=== PATIENT | female | born 1960 | race Caucasian/White ===

== ENCOUNTER → 2022-01-09 | Outpatient (REF) | payer BC | LOC: M LAB REF 18:06 | PROVIDERS: ATTEND Family Medicine | DX: Z12.4 Encounter for screening for malignant neoplasm of cervix (principal) ==

== ENCOUNTER 2022-04-26 09:30 | Day surgery (SDC) | payer BC ==
[~2022-04-26] VITALS: Ht 157.5 cm; Wt 71.1 kg
[~2022-04-26 09:30] MED LIST: FLUO1TAB3; LISI10TA22; NS 1,000 ML IV ONE
[2022-04-26] MEDS ORDERED: LIDOCAINE 2% 100MG/5ML SDV (FOR ANES.) As Ordered ONE (11:41)
[2022-04-26] MEDS ORDERED: propofoL 200 MG/20 ML VIAL As Ordered ONE (11:41)
[2022-04-26 12:05] VITALS: BP 119/56
== END 2022-04-26 12:14 | disposition home or self-care (01) ==
LOC: M OPP 09:30
PROVIDERS: ATTEND Surgery
DX: Z12.11 Encounter for screening for malignant neoplasm of colon (principal); K57.30 Diverticulosis of large intestine without perforation or abscess without bleeding; I10 Essential (primary) hypertension; F32.9 Major depressive disorder, single episode, unspecified; F41.9 Anxiety disorder, unspecified; Z79.899 Other long term (current) drug therapy